=== PATIENT | female | born 1980 | race African-American/Black ===

== ENCOUNTER → 2017-07-12 | Day surgery (SDC) | payer OTHER | END | disposition home or self-care (01) | LOC: CIR.AMB 07:17 | DX: Z30.2 Encounter for sterilization (principal) ==

== ENCOUNTER 2019-12-20 09:45 | Inpatient (IN) | payer OTHER ==
[~2019-12-20] VITALS: Ht 167.6 cm; Wt 96.2 kg
--- NOTE | 2019-12-20 09:58 | NUR ---
PTE REFIERE VOMITAR 5 VECES, SE GRACE SIGNO VITALES Y SE PONE EN OBSERVACION.
--- NOTE | 2019-12-20 11:16 | NUR ---
FEMINA DE 39 ANOS,ALERTA,ORIENTADA EN JUSTIN LIZBETH ESFERAS,DESCANSANDO EN CAMA CON BARANDAS ELEVADAS,FRENOS,FONTENOT DE IDENTIFICACION COLOCADOS POR SEGURIDAD. EVALUADA POR MD EN TURNO A QUIEN COLOCA ORDENES MEDICAS. ORIENTA PACIENTE SOBRE PROCEDIMIENTOS A LLEVAR A CABO,REFIERE COMPRENDER. COLECTA MUESTRAS DE LABORATORIOS,ROTULA Y ENVIA PARA ANALISIS. NOTIFICA ESTUDIO DE SONOGRAMA ABD A PERSONAL EN TURNO.
== END 2020-01-02 17:11 | disposition home or self-care (01) | DRG 417 ==
LOC: ER 09:45 → SEC-K 18:06 → MEDI 18:06
PROVIDERS: Surgery; ADMIT Internal Medicine; ATTEND Internal Medicine
PROC: BW40ZZZ Ultrasonography of Abdomen (ICD-10-PCS; 2019-12-20)
PROC: BF37ZZZ Magnetic Resonance Imaging (MRI) of Pancreas (ICD-10-PCS; 2019-12-20)
PROC: 02HV33Z Insertion of Infusion Device into Superior Vena Cava, Percutaneous Approach (ICD-10-PCS; 2019-12-24)
PROC: 0FJD8ZZ Inspection of Pancreatic Duct, Via Natural or Artificial Opening Endoscopic (ICD-10-PCS; 2019-12-25)
PROC: BF37ZZZ Magnetic Resonance Imaging (MRI) of Pancreas (ICD-10-PCS; 2019-12-27)
PROC: 0FT44ZZ Resection of Gallbladder, Percutaneous Endoscopic Approach (ICD-10-PCS; principal; 2019-12-29 10:00)
DX: K80.10 Calculus of gallbladder with chronic cholecystitis without obstruction (principal); K85.10 Biliary acute pancreatitis without necrosis or infection; K80.64 Calculus of gallbladder and bile duct with chronic cholecystitis without obstruction; Z20.828 Contact with and (suspected) exposure to other viral communicable diseases

== ENCOUNTER 2020-09-01 17:26 | Emergency (ER) | payer OTHER ==
[~2020-09-01] VITALS: Ht 167.6 cm; Wt 99.8 kg
== END 2020-09-01 22:14 | disposition home or self-care (01) ==
LOC: ER 17:26
DX: R10.84 Generalized abdominal pain (principal); Z33.1 Pregnant state, incidental

== ENCOUNTER 2020-09-02 09:42 | Inpatient (IN) | payer OTHER ==
[~2020-09-02] VITALS: Ht 167.6 cm; Wt 99.8 kg
[2020-09-04] MEDS ORDERED: PROFERRIN-FORT1 EACH PO (06:55)
[2020-09-04] MEDS ORDERED: CLEOCIN HCL300 MG PO (06:55)
== END 2020-09-04 13:14 | disposition home or self-care (01) | DRG 819 ==
LOC: ER 09:42 → CIR.AMB 13:18 → SEC-K 14:03 → OB/GYN 17:34
PROVIDERS: ADMIT Obstetrics & Gynecology; ATTEND Obstetrics & Gynecology
PROC: 0UB70ZZ Excision of Bilateral Fallopian Tubes, Open Approach (ICD-10-PCS; principal; 2020-09-02 13:00)
DX: O00.101 Right tubal pregnancy without intrauterine pregnancy (principal); Z20.822 Contact with and (suspected) exposure to COVID-19